=== PATIENT | male | born 1970 | race Caucasian/White ===

== ENCOUNTER 2024-01-20 09:33 | Day surgery (SDC) | payer BC, SELFPAY ==
[2024-01-20] VITALS (9 sets, daily range): BP systolic 104–126; BP diastolic 59–82; PULSE 47–62; RESP 14–16; TEMP 36.1–36.7; O2SAT 93–98; BMI 27.1
[2024-01-20] MEDS: Lactated Ringers 1,000 ML 15 ML IV (10:06)
--- NOTE | 2024-01-20 10:22 | PRE.ANES_ITS ---
ASA Classification* ASA Classification ASA Classification: 2 Assessment & Plan Anesthesia* Anesthesia Assessment Anesthesia Assessment: Discussed sedation and/or anesthesia options, risks, benefits, and alternatives with patient/parents/legal guardian/POA. Questions invited. The patient/parents/legal guardian/POA seems to understand and agrees to proceed with anesthesia plan. Reviewed the physical assessment, medical history, allergy history and patient home medications list prior to surgery/procedure/anesthetic and documented any changes. Performed airway and anesthesia risk assessments. 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 When Was Last Pacemaker Check QUESTION #4 FULL TEXT: You/Your Family Experience fever (hyperthermia) with Anesthesia Last Oral Intake Last Oral intake: Last Oral Intake NPO since 13:00 01/20/24 10:07 Meds taken in AM with sips of No 01/20/24 10:07 water? Meds patient instructed to take am of surgery PONV PONV - electron microprobe operator: PONV - electron microprobe operator Female No 01/17/24 11:48 HX of Motion Sickness No 01/17/24 11:48 HX of N/V After Surgery No 01/17/24 11:48 Non-Smoker Yes 01/17/24 11:48 Duration of Surgery greater No 01/17/24 11:48 than 60 minutes Number of Risk Factors 1 01/17/24 11:48 PONV Score Low Risk 01/17/24 11:48 Height & Weight Height & Weight: Anesthesia: Height & Weight Height 5 ft 10 in 01/20/24 10:07 Weight: 86 kg 01/20/24 10:07 Body Mass Index (BMI) 27.1 01/20/24 10:07 Respiratory Assessment Respiratory Assessment - electron microprobe operator: Respiratory Tract Infection Hx - electron microprobe operator Hx Respiratory Tract Infection No 01/17/24 11:48 STOP Sleep Apnea STOP Sleep Apnea - electron microprobe operator: STOP Sleep Apnea - electron microprobe operator Hx Hypertension No 01/17/24 11:48 Hx Sleep Apnea No 01/17/24 11:48 CPAP BIPAP Do you snore loudly (louder Yes 01/17/24 11:48 than talking or can be heard Do you often feel tired/ No 01/17/24 11:48 fatigued/ sleepy during daytime? Has anyone observed you stop No 01/17/24 11:48 breathing during sleep? STOP Results Negative 01/17/24 11:48 QUESTION #5 FULL TEXT : Do you snore loudly (louder than talking or can be heard through closed doors)? 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 Specify any problems Hx of Preganancy in last 3 N/A 01/17/24 11:48 Months Nurse Filling Out Transfusion DSCHRIBER 01/17/24 11:48 & Questions: Date: 01/17/24 01/17/24 11:48 Time: 11:50 01/17/24 11:48 Patient unable to answer at this time (ie. confused, unrespo /Reproduction History /Reproductive History - electron microprobe operator: /Reproductive Hx- electron microprobe operator Hx Now No 01/17/24 11:48 Gestational Age (in weeks): EDC: Hx Hx Para Hx Section SAB No 01/17/24 11:48 Active Medications Active Medications: Current Medications Generic Name Dose Route Start Last Admin Trade Name Freq PRN Reason Stop Dose Admin Lactated Ringer's 1,000 mls @ 15 mls/hr 01/20/24 09:45 01/20/24 10:06 IV 15 mls/hr .Q48H DEEPTHI Administration Anesthesia Focused Assessment* Temperature: 97 F Pulse Rate: 62 Blood Pressure: 126/82 Respiratory Rate: 16 Pulse Ox: 98 Airway Assessment Mouth opens: >3 cm Mallampati Score: II Focused Labs Anesthesia Preop lab: CBC CHEMISTRY COAG Review of Systems (Anesthesia) ROS Narrative System reviewed and no additional complaints, except as documented. [facility] Medical History (Updated 01/17/24 @ 11:53 by Marya Sanchez) Wears glasses Back pain Heartburn Non-smoker Hemorrhoids History of change in bowel patterns Home Medications ?Medication ?Instructions ?Recorded ?Last Taken ?Type NK 12/23/23 Unknown History Allergy/AdvReac Type Severity Reaction Status Date / Time No Known Allergies Allergy Verified 01/20/24 10:04 Family History (Updated 12/23/23 @ 14:48 by Giselle Wall) Grandfather Colon cancer Surgical History (Updated 12/23/23 @ 14:48 by Giselle Wall) History of appendectomy Social History (Updated 12/23/23 @ 14:49 by Giselle Wall) Smoking Status: Never smoker alcohol intake: current alcohol intake frequency: a few times a month substance use type: does not use
--- NOTE | 2024-01-20 10:31 | PCM.HP.BLA ---
History and Physical Date of Admission: 01/20/24 Intake Vital Signs 12/22/2413:49 Height 5 ft 9 in Weight: 197 lb 6 oz BMI 29.1 BP 143/89 H Blood Pressure Location Rt brachial Position Sitting Respiration 18 Pulse 71 Pulse Source Monitor Temp 97.5 F L Temp Source Temporal Pulse Oximetry (%) 97 Oxygen Delivery Method room air Intake Visit Reasons: Change in bowel habits Chief Complaint: Change in bowel patterns Grain Weigher Required: No Is patient in pain?: No Allergies No Known Allergies Allergy (Unverified 12/23/23 14:50) Medications ?Medication ?Instructions ?Recorded ?Confirmed ?Type NK 12/23/23 12/23/23 History PFSH Medical History (Updated 12/23/23 @ 15:[address] Max Shah MD) Hemorrhoids GERD (gastroesophageal reflux disease) History of change in bowel patterns Surgical History (Updated 12/23/23 @ 14:48 by Giselle Wall) History of appendectomy Family History (Updated 12/23/23 @ 14:48 by Giselle Wall) Grandfather Colon cancer Social History (Updated 12/23/23 @ 14:49 by Giselle Wall) Smoking Status: Never smoker alcohol intake: current alcohol intake frequency: a few times a month substance use type: does not use HPI HPI HPI: Patient is a 53-year-old male here with light-colored stools. He says this started after COVID 2 years ago. He says they are not always as late but sometimes they are off-white. He says that it is only occasionally that he has a brown bowel movement. He also says that is very hard to wipe and very hard to pass. Patient has never had a colonoscopy in the past. He denies any abdominal pain or gross blood in the stool. He does have family history of colon cancer in his father. Patient denies any jaundice or scleral icterus. He reports his urine is normal color. ROS General General: No weight change, appetite, fatigue, colon cancer, breast cancer or weakness HEENT HEENT: No difficulty swallowing, eye injury, eye surgery, swollen glands or hoarseness Endo Endocrine: No thyroid disease, diabetes mellitus, thyroid cancer, Hair loss, heat intolerance or cold intolerance Skin Skin: No rash or changing moles Breast Breast: No left breast lump, right breast lump, nipple discharge, breast pain, abnormal mammogram, abnormal US or breast enlargement Musc Musculoskeletal: No back problems, arthritis, rheumatoid arthritis, gout or joint pain Cardio Cardiovascular: No murmur, pacemaker, heart disease, atrial fibrillation, high blood pressure, heart attack, heart stent, palpitations, shortness of breat with exertion or chest pain Psych Psychiatric: No depression, anxiety or hearing voices Resp Respiratory: No shortness of breath, No sleep apnea, No cough, No COPD, No asthma, No emphysema and No wheezing Gastro Gastrointestinal: No abdominal pain, No nausea or vomiting, No diarrhea, No constipation, No blood in stool, Yes acid reflux, Yes hemorrhoids, No ulcers, No gallbladder problem and No black,tarry stools Additional Details: Stools have been more white in color since covid a couple years ago. Also notes increased odor Rob Hematologic: No blood thinners, No blood disorders, No bleeding, No anemia and No blood clots Neuro Neurologic: No system reviewed and no additional complaints, except as documented, No as per HPI, No abnormal gait, No abnormal hearing, No abnormal movements, No abnormal speech, No behavioral changes, No burning sensations, No confusion, No convulsions, No disequilibrium, No dizziness, No localized weakness, No frequent falls, No headache(s), No lack of coordination, No loss of vision, No memory loss, No numbness, No other visual disturbances, No radicular pain, No restless legs, No sensory deficit, No syncope, No tingling, No tremor(s), No weakness and No other Exam Const General: cooperative Orientation: alert and oriented x3 HENSD Head: normal to inspection Neck Neck: normal visual inspection and full ROM Chest Chest palpation & inspection: normal inspection of the chest Resp Effort & Inspection: normal respiratory effort Auscultation: clear to auscultation bilaterally Cardio Rate: regular rate Rhythm: regular rhythm GI Inspection: non-distended Palpation: soft and nontender Skin General: no rashes or lesions noted Neuro General: patient alert and patient oriented x3 Extrem General: full ROM Psych Appearance: grossly normal Mental Status: mental status grossly normal Assessment and Plan Assessment and Plan (1) Change in consistency of stool: Status: Acute Plan: Patient reports that his stool is becoming harder to wipe and it is very light-colored almost off-white. He has been having a hard time passing stools but he has been having daily bowel movements. This is been going on for 2 years since he had COVID. I will perform a colonoscopy to evaluate. I explained endoscopy in detail to the patient. I explained the risks including but not limited to stroke or heart attack with anesthesia, perforation of the GI tract, bleeding, infection. I explained that any of these could necessitate further emergency surgery. The patient understands and all questions were answered sufficiently. The patient wishes to proceed with procedure. Max Shah MD Pager: [facility] [address] [place] [address] [address] [place] [address] Office: I have examined the patient and the H&P has been reviewed. There are no clinical changes since date of exam.
--- NOTE | 2024-01-20 10:45 | COLBX_PTH ---
PATIENT: SABRA SIMPSON LOC: EN U#:[id number] AGE/SX: 53/M ROOM: RE01/20/[address]: Dr. Max Shah MD : 1970 BED: DIS: 01/20/2024 SPEC #: [id number] RECD: 01/20/24 13:45 STATUS: HUSSEIN BRIAN #: [id number] CHER: 01/20/24 10:[address]: Max Shah DEPT: SURGICAL PATHOLOGY RECD BY: Jonathan Lee ENTERED: 01/23/24 08:23 SP TYPE: COLON BX OTHR DR: KALIA Kay Tissues: Descending colon Procedures: Surgery Specimen Level IV HEADER OPERATION: Colonoscopy, polypectomy PRE-OP DIAGNOSIS: Change in consistency of stool TISSUE SUBMITTED: Descending colon polyp MICROSCOPIC DIAGNOSIS Descending colon polyp, biopsy: Benign mucosal polyp. See comment. RACHELLE/ 01/24/2024 COMMENT Neither hyperplastic nor adenomatous change is identified. Clinical correlation is suggested. MICROSCOPIC DESCRIPTION Slides are reviewed. GROSS DESCRIPTION Received in fixative is one container labeled with the patient's name and designated Descending colon polyp. The specimen consists of one irregular fragment of light norris soft tissue that measures 0.2 x 0.2 x 0.1 cm. The specimen is totally submitted in one cassette. AM/mr 01/23/2024 TC:5 CPT:15067
--- NOTE | 2024-01-20 11:08 | OP.COLON_ITS ---
Patient Name: Andrey Felix Procedure Date: 01/20/2024 10:42 AM Date of : 1970 Age: 53 Procedure: Colonoscopy Indications: Change in stool caliber Providers: Max Shah MD Referring MD: Terell Hernandez Medicines: Propofol per Anesthesia Patient Profile: This is a 53 year old male. Refer to note in patient chart for documentation of history and physical. Last Colonoscopy: none. The patient's first colonoscopy is today. Complications: No immediate complications. Procedure: Pre-Anesthesia Assessment: - Prior to the procedure, a History and Physical was performed, and patient medications and allergies were reviewed. The patient's tolerance of previous anesthesia was also reviewed. The risks and benefits of the procedure and the sedation options and risks were discussed with the patient. All questions were answered, and informed consent was obtained. Prior Anticoagulants: The patient has taken no anticoagulant or antiplatelet agents. After reviewing the risks and benefits, the patient was deemed in satisfactory condition to undergo the procedure. After I obtained informed consent, the scope was passed under direct vision. Throughout the procedure, the patient's blood pressure, pulse, and oxygen saturations were monitored continuously. The colonoscope was introduced through the anus and advanced to the cecum, identified by appendiceal orifice and ileocecal valve. The colonoscopy was performed without difficulty. The patient tolerated the procedure well. The quality of the bowel preparation was good. The ileocecal valve, appendiceal orifice, and rectum were photographed. Scope In: 10:48:38 AM Scope Withdrawal Time 0 hours 8 minutes 24 seconds Scope Out: 11:03:56 AM Total Procedure Duration Time 0 hours 15 minutes 18 seconds Findings: A small polyp was found in the descending colon. The polyp was removed with a hot snare. Resection and retrieval were complete. The exam was otherwise without abnormality on direct and retroflexion views. Impression: - One small polyp in the descending colon, removed with a hot snare. Resected and retrieved. - The examination was otherwise normal on direct and retroflexion views. Recommendation: - Discharge patient to home. - Resume previous diet. - Continue present medications. - Await pathology results. - Repeat colonoscopy in 5 years for screening purposes. Procedure Code(s): --- Professional --- 35347, Colonoscopy, flexible; with removal of tumor(s), polyp(s), or other lesion(s) by snare technique Diagnosis Code(s): --- Professional --- D12.4, Benign neoplasm of descending colon R19.5, Other fecal abnormalities CPT copyright 2021 [employer]. All rights reserved. The codes documented in this report are preliminary and upon game agent review may be revised to meet current compliance requirements. Max Shah MD 01/20/2024 11:07:48 AM This report has been signed electronically. Number of Addenda: 0 Note Initiated On: 01/20/2024 10:42 AM
--- NOTE | 2024-01-20 11:08 | OP.CCLET_ITS ---
01/20/2024 Terell Hernandez Re : Colonoscopy procedure for Andrey Felix Dear David This procedure was performed on Saturday, January 20, 2024. My impressions and recommendations are as follows: Impressions : - One small polyp in the descending colon, removed with a hot snare. Resected and retrieved. - The examination was otherwise normal on direct and retroflexion views. Recommendations : - Discharge patient to home. - Resume previous diet. - Continue present medications. - Await pathology results. - Repeat colonoscopy in 5 years for screening purposes. My findings are described in the full procedure note, which is enclosed. If I can be of further assistance, please feel free to contact me at Doctor phone number(s): , Work: . Sincerely, Max Shah MD 01/20/2024 11:07:48 AM This report has been signed electronically.
--- NOTE | 2024-01-20 11:11 | PCM.POST.ANE ---
Anesthesia: Postop Eval I Current Vital Signs Temperature: 97.8 F Pulse Rate: 59 Blood Pressure: 104/59 Respiratory Rate: 14 Pulse Ox: 93 Oxygen Delivery Method: Room Air Assessment Airway patent: Yes Spontaneous unlabored respirations: Yes Mental status: Asleep nausea: No Vomiting: No Anesthesia Complication: No Fluid Hydration Crystalloid volume administer (ml): 500 Total IV fluid infused: 500 Progress Note Anesthesia document: Postop Eval 1 completed: Yes
--- NOTE | 2024-01-20 12:53 | PCM.POSTANE2 ---
Anesthesia Postop Eval I Sum Postop Eval Completion status Anesthesia document: Postop Eval 1 completed: Yes Anesthesia Postop Eval I Summary Anesthesia Postop Eval I Summary: Anesthesia Postop Eval I: Assessment Summary Airway patent Yes 01/20/24 11:16 [email or web address] Spontaneous unlabored Yes 01/20/24 11:16 [email or web address] respirations Mental status Asleep 01/20/24 11:16 [email or web address] nausea No 01/20/24 11:16 [email or web address] Vomiting No 01/20/24 11:16 [email or web address] Anesthesia Postop Eval I: Fluid Summary Crystalloid volume administer 500 01/20/24 11:16 [email or web address] (ml) Colloids volume administered ( ml) Blood Product volume administered (ml) Total IV fluid infused 500 01/20/24 11:16 [email or web address] Anesthesia Postop Eval I: Summary Notes Anesthesia Complication No 01/20/24 11:16 [email or web address] Anesthesia Complication Comment: Post-operative progress note Anesthesia: Postop Eval II Evaluation Mental status: Awake Pain Level: 0 nausea: No Vomiting: No Complications Anesthesia Complication: No
== END 2024-01-20 11:55 | disposition home or self-care (01) ==
LOC: EN 09:34 → AC 09:47
PROVIDERS: PCP Physician Assistant; Referring Provider Physician Assistant; Visit Provider Surgery
PROC: 0DJD8ZZ Inspection of Lower Intestinal Tract, Via Natural or Artificial Opening Endoscopic (ICD-10-PCS; CPT 45378; principal; 2024-01-20 10:40)
DX: K63.5 Polyp of colon (principal); Z80.0 Family history of malignant neoplasm of digestive organs; K21.9 Gastro-esophageal reflux disease without esophagitis
CPT/HCPCS: 45385; 88305; J7120; J2405